=== PATIENT | male | born 1975 | race Caucasian/White ===

== ENCOUNTER 2017-06-08 12:18 | Observation (INO) | payer MEDICAID, SELFPAY ==
[2017-06-08 12:07] VITALS: BP 123/85; PULSE 75; RESP 18; TEMP 37.1; O2SAT 97; BMI 23.6; BMI 23.7
--- NOTE | 2017-06-08 12:27 | PCM.HP.STD ---
Problem List (1) Opiate withdrawal Status: Acute (2) Benzodiazepine withdrawal Status: Acute (3) ETOH abuse Status: Chronic (4) Tobacco dependence due to cigarettes Status: Chronic (5) Polysubstance abuse Status: Chronic History of Present Illness Date of Admission: 06/08/17 Chief Complaint: Presented to the [facility] office requesting inpt admission for controlled withdrawal from opiates and benzodiazepins, Tremors, SOLARES The patient is a 42 year old M with a past medical history of anxiety, polysubstance abuse and tobacco dependence who presented to the [facility] office requesting admission for medical stabilization for opiate and benzodiazepine withdrawal. He has been taking about 10 Percocet a day, 4 mg of Xanax and drinking 4-8 16 oz beers a day. He has been to rehab before for polysubstance abuse. He tells me he takes 10-20 Tylenol a day. He also admits to occasional use of Klonopin, cocaine and on rare occasions Heroin. Denies any hx of HEP C or HIV. Has had convulsions with benzo withdrawal in the past. Recently started on Buspar and Celexa 3 weeks ago by his PCP for anxiety and depression associated with his mothers passing recently. He has been having tremors, SOLARES's and increased anxiety. He last took a benzo 4 days ago.. Has not had any seizures. There is a strong FH of alcoholism and also opiate addiction. He plans on following up with an in-pt program at [place]. He will follow up with a physician and the [facility] to prescribe a Benzodiazepine taper for him. Past Medical History Past Medical History (Chronic Problems): Chronic Problems ETOH abuse (Chronic) Tobacco dependence due to cigarettes (Chronic) Polysubstance abuse (Chronic) Home Medications: Ambulatory Orders Medication Instructions Recorded Citalopram Hydrobromide [Celexa] 20 mg PO DAILY 06/08/17 Gabapentin [Neurontin] 800 mg PO TIDCM 06/08/17 busPIRone [Buspar] 10 mg PO TID 06/08/17 Surgical History: - - surgery on the right hand X 2 for injuries sustained when he punched a wall Psychiatric History: Anxiety Lives: Alone - in an APPT. Until his mother passed recently he was living with her Smoking Status: Current every day smoker Tobacco Use: Cigarettes - 1 PPD Alcohol: Heavy Drugs: Cocaine - occasionally, Heroin - On rare occasions, - - Benzodiazepines Review of Systems Constitutional: Reports: Anorexia Eyes: Denies: Blurred vision HEENT: Reports: Head Aches. Denies: Difficulty Swallowing, Sinus Congestion, Sinus Drainage, Sore Throat Cardiovascular: Reports: Palpitations. Denies: Chest Pain, Edema, Light Headedness Respiratory: Denies: Cough, Shortness of breath at rest, Sputum production Gastrointestinal: Denies: Abdominal Pain, Nausea, Vomiting Genitourinary: Denies: Dysuria Musculoskeletal: Reports: Hand Pain - Right hand....chronic Skin: Denies: Jaundice, Rash, Wounds Neurological: Denies: Focal weakness, Numbness, Tingling, Seizures Psychiatric: Reports: Anxiety. Denies: Homicidal Ideations, Suicidal Ideations Endocrine: Reports: Change in Body Habitus - states he has been losing weight ....not eating much recently since his mother Hematologic/ Lymphatic: Denies: Hx of blood clot VTE Information - Inpt Only VTE Present on Admission: No VTE Mechan Device Prophylaxis: None VTE Pharm Prophylaxis ordered?: No Reason prophylaxis not ordered:: Treatment Not Indicated - he is ambulatory and at low risk for DVT Patient Problems: Active and Suspected Problems Opiate withdrawal (Acute) Benzodiazepine withdrawal (Acute) - Physical Exam General: Alert, Oriented x3, Cooperative, - - having myoclonic jerks and tremors of his hands HEENT: Atraumatic, PERRLA, EOMI, Normocephalic Oral: Dry Mucosa Neck: Supple, No JVD, Negative Carotid Bruits, No Nodes, No Nuchal Rigidity, Trachea Midline Lungs: Clear to auscultation Cardiovascular: Regular rate, Regular Rhythm, Normal S1, Normal S2, No murmurs, No rub noted, No Gallop Abdomen: Bowel Sounds Present, Soft, Non Tender, Non-Distended Extremities: No clubbing, No cyanosis, No edema, Peripheral Pulses Normal Skin: No rashes, No breakdown Neurological: Cranial nerves II-XII grossly intact, Neuro grossly intact, - - myoclonic jerks and tremors of his hands Psych/Mental Status: Appropriate, Anxious Assessment/Plan Active and Suspected Problems Opiate withdrawal (Acute) Benzodiazepine withdrawal (Acute) Impressions 1. Acute benzodiazepine withdrawal with tremors and myoclonic jerking 2. Acute opiate withdrawal 3. EtOH abuse 4. Tobacco dependence with cigarettes 5. Polysubstance abuse 6. Long history of anxiety and benzodiazepine dependence-greater than 10 years 7. Positive family history of alcoholism and narcotic addictions [facility] Protocol for acute opiate withdrawal initiated Start Librium 50 mg Q 6 H Ativan 1 mg IV now and then Q 6 H PRN seizure Insert a HL CBC, CMP, urine drug screen, serum ETOH level, Hepatitis panel and HIV Code Visit Inpatient E&M: 90954 Init Hosp L3
--- NOTE | 2017-06-08 12:39 | HP.PCM_ITS ---
Problem List (1) Opiate withdrawal Status: Acute (2) Benzodiazepine withdrawal Status: Acute (3) ETOH abuse Status: Chronic (4) Tobacco dependence due to cigarettes Status: Chronic (5) Polysubstance abuse Status: Chronic History of Present Illness Date of Admission: 06/08/17 Chief Complaint: Presented to the [facility] office requesting inpt admission for controlled withdrawal from opiates and benzodiazepins, Tremors, SOLARES The patient is a 42 year old M with a past medical history of anxiety, polysubstance abuse and tobacco dependence who presented to the [facility] office requesting admission for medical stabilization for opiate and benzodiazepine withdrawal. He has been taking about 10 Percocet a day, 4 mg of Xanax and drinking 4-8 16 oz beers a day. He has been to rehab before for polysubstance abuse. He tells me he takes 10-20 Tylenol a day. He also admits to occasional use of Klonopin, cocaine and on rare occasions Heroin. Denies any hx of HEP C or HIV. Has had convulsions with benzo withdrawal in the past. Recently started on Buspar and Celexa 3 weeks ago by his PCP for anxiety and depression associated with his mothers passing recently. He has been having tremors, SOLARES's and increased anxiety. He last took a benzo 4 days ago.. Has not had any seizures. There is a strong FH of alcoholism and also opiate addiction. He plans on following up with an in-pt program at [place]. He will follow up with a physician and the [facility] to prescribe a Benzodiazepine taper for him. Past Medical History Past Medical History (Chronic Problems): Chronic Problems ETOH abuse (Chronic) Tobacco dependence due to cigarettes (Chronic) Polysubstance abuse (Chronic) Home Medications: Ambulatory Orders Medication Instructions Recorded Citalopram Hydrobromide [Celexa] 20 mg PO DAILY 06/08/17 Gabapentin [Neurontin] 800 mg PO TIDCM 06/08/17 busPIRone [Buspar] 10 mg PO TID 06/08/17 Surgical History: - - surgery on the right hand X 2 for injuries sustained when he punched a wall Psychiatric History: Anxiety Lives: Alone - in an APPT. Until his mother passed recently he was living with her Smoking Status: Current every day smoker Tobacco Use: Cigarettes - 1 PPD Alcohol: Heavy Drugs: Cocaine - occasionally, Heroin - On rare occasions, - - Benzodiazepines Review of Systems Constitutional: Reports: Anorexia Eyes: Denies: Blurred vision HEENT: Reports: Head Aches. Denies: Difficulty Swallowing, Sinus Congestion, Sinus Drainage, Sore Throat Cardiovascular: Reports: Palpitations. Denies: Chest Pain, Edema, Light Headedness Respiratory: Denies: Cough, Shortness of breath at rest, Sputum production Gastrointestinal: Denies: Abdominal Pain, Nausea, Vomiting Genitourinary: Denies: Dysuria Musculoskeletal: Reports: Hand Pain - Right hand....chronic Skin: Denies: Jaundice, Rash, Wounds Neurological: Denies: Focal weakness, Numbness, Tingling, Seizures Psychiatric: Reports: Anxiety. Denies: Homicidal Ideations, Suicidal Ideations Endocrine: Reports: Change in Body Habitus - states he has been losing weight ....not eating much recently since his mother Hematologic/ Lymphatic: Denies: Hx of blood clot VTE Information - Inpt Only VTE Present on Admission: No VTE Mechan Device Prophylaxis: None VTE Pharm Prophylaxis ordered?: No Reason prophylaxis not ordered:: Treatment Not Indicated - he is ambulatory and at low risk for DVT Patient Problems: Active and Suspected Problems Opiate withdrawal (Acute) Benzodiazepine withdrawal (Acute) - Physical Exam General: Alert, Oriented x3, Cooperative, - - having myoclonic jerks and tremors of his hands HEENT: Atraumatic, PERRLA, EOMI, Normocephalic Oral: Dry Mucosa Neck: Supple, No JVD, Negative Carotid Bruits, No Nodes, No Nuchal Rigidity, Trachea Midline Lungs: Clear to auscultation Cardiovascular: Regular rate, Regular Rhythm, Normal S1, Normal S2, No murmurs, No rub noted, No Gallop Abdomen: Bowel Sounds Present, Soft, Non Tender, Non-Distended Extremities: No clubbing, No cyanosis, No edema, Peripheral Pulses Normal Skin: No rashes, No breakdown Neurological: Cranial nerves II-XII grossly intact, Neuro grossly intact, - - myoclonic jerks and tremors of his hands Psych/Mental Status: Appropriate, Anxious Assessment/Plan Active and Suspected Problems Opiate withdrawal (Acute) Benzodiazepine withdrawal (Acute) Impressions 1. Acute benzodiazepine withdrawal with tremors and myoclonic jerking 2. Acute opiate withdrawal 3. EtOH abuse 4. Tobacco dependence with cigarettes 5. Polysubstance abuse 6. Long history of anxiety and benzodiazepine dependence-greater than 10 years 7. Positive family history of alcoholism and narcotic addictions [facility] Protocol for acute opiate withdrawal initiated Start Librium 50 mg Q 6 H Ativan 1 mg IV now and then Q 6 H PRN seizure Insert a HL CBC, CMP, urine drug screen, serum ETOH level, Hepatitis panel and HIV Code Visit Inpatient E&M: 62651 Init Hosp L3
[2017-06-08 12:53] VITALS: BP 123/85; PULSE 74; RESP 16; TEMP 37.1
[2017-06-08 13:18] LABS: Hemoglobin 15.4 g/dl (13.0-16.5); Mean Corp Hgb Conc 33.5 g/gl (32-36); Mean Corpuscular Hgb 32.1 pg (27.0-32.0); Mean Corpuscular Volume 95.8 fL (80-94); Mean Platelet Vol. 10.3 fl (6.2-12.0); Platelet Count 354 K/mm3 (150-450); RBC Distribution Width CV 13.3 % (11.6-14.6); RBC Distribution Width SD 46.6 fl (35.1-43.9); Scan Indicated on CBC? Y/N NO; White Blood Count 10.3 K/mm3 (4.4-11.0)
[2017-06-08 13:26] LABS: Prothrombin Time (Protime)PT. 13.5 SECONDS (11.7-14.9)
[2017-06-08] MEDS: LORazepam 2 MG/ML Syringe 1 MG IV (13:35)
[2017-06-08] MEDS: chlordiazePOXIDE 25 MG Capsule 50 MG PO ×2 (13:35→17:54)
[2017-06-08] MEDS: Buprenorphine HCl 2 MG TAB.SUBL SL ×2 (13:36→20:29)
[2017-06-08 13:44] VITALS: RESP 16
[2017-06-08 13:47] LABS: ALB/GLOB Ratio 1.2 RATIO (0.9-2.4); AST(SGOT) 12 U/L (15-37); Alanine Aminotransfer ALT/SGPT 16 U/L (16-61); Albumin, Serum 4.5 g/dL (3.2-5.0); Alkaline Phosphatase 88 U/L (45-117); Anion Gap 8 (5-15); BUN 4 mg/dL (7-18); BUN/Creat Ratio 5.2 RATIO (10-20); Calcium,Total 9.1 mg/dL (8.5-10.1); Chloride 100 mmol/L (98-107); Creatinine, Serum 0.77 mg/dL (0.70-1.30); EST Glomerular Filtration Rate 117 mL/min (>60); Est Glom Filt Rate - Afr Amer 142 mL/min (>60); Estimated Creatinine Clearance 115.65 ml/min; Globulin 3.8 g/dL (2.2-4.2); Glucose 88 mg/dL (74-106); Potassium 2.9 mmol/L (3.5-5.1); Protein, Total 8.3 g/dL (6.4-8.2); Sodium Level 139 mmol/L (136-145)
[2017-06-08 13:56] LABS: Acetaminophen (Tylenol) Level < 2.0 ug/mL (10.0-30.0)
--- NOTE | 2017-06-08 14:30 | NURSING ---
This RN now the primary RN for this patient at this time.
[2017-06-08] MEDS: Ibuprofen 600 MG Tablet PO (14:55)
[2017-06-08 15:13] LABS: HIV - WCH Non-Reactive (Nonreactive)
[2017-06-08 17:06] VITALS: BP 128/68; PULSE 106; RESP 16; TEMP 37.3
--- NOTE | 2017-06-08 17:11 | CHAPLAIN ---
Type of Pastoral Visit _x__ Initial Visit ___ Follow-up Visit ___ On-call Visit ___ General Patient Visit ___ Spiritual Assessment ___ Family Conference ___ Bereavement ___ Rapid Response ___ Code Blue ___ Other (describe below) Pastoral Care Referral From _x__ Patient ___ Family ___ Nurse ___ Physician ___ Welfare Eligibility Worker ___ Manager Immunology ___ Other (describe below) Sacrament/Intervention _x__ Active listening ___ Anointing ___ Latter-Day _x__ Bereavement ___ Communion _x__ Sarah exploration ___ _x__ Life review _x__ Prayer ___ Reconciliation ___ Sacrament of Sick _x__ Supportive presence ___ Wedding ___ Other (describe below) Pastoral Comments patient was seeking spiritual care through the front end driver; pt has had previous experience and success with a [facility] based rehab program; pt has relapsed after of his mother in April; pt talked at length about his concerns and sarah; pt accepted some reading material and a Bible
[2017-06-08 17:28] LABS: Amphetamine Urine VISTA NEGATIVE (<1000 ng/mL); Barbiturate Urine VISTA NEGATIVE (< 200 ng/mL); Benzodiazepine Urine VISTA NEGATIVE (< 200 ng/mL); Cocaine Urine VISTA NEGATIVE (< 300 ng/mL); Ecstacy Urine VISTA NEGATIVE (< 500 ng/mL); Methadone Urine VISTA NEGATIVE (< 300 ng/mL); PCP Urine VISTA NEGATIVE (< 25 ng/mL); THC Urine VISTA NEGATIVE (< 50 ng/mL); Vista UDS pH Range 6
--- NOTE | 2017-06-08 19:26 | NURSING ---
Addendum entered by Xiomara Dillard 06/08/17 19:31: Dentures in cup, paste and 4 denture tablets given to patient Original Note: On admission pt states he has upper and lower dentures- however, he forgot and left them in his duffle bag that security has stored downstairs. This RN called Charline with [facility] and states that security will be taking belongings of [facility] pt's and placing them in a locked room. This RN went downstairs and met computer systems security administrator and together retrieved patient's dentures, paste and cleaning tablets- per his request.
[2017-06-08] MEDS: Ondansetron ODT 4 MG Tablet PO (20:28)
[2017-06-08] MEDS: cloNIDine HCl 0.1 MG Tablet PO (20:29)
[2017-06-08] MEDS: Dicyclomine 10 MG Capsule 20 MG PO (20:29)
[2017-06-08 20:42] VITALS: BP 124/83; PULSE 101; RESP 18; TEMP 37
[2017-06-08] MEDS: QUEtiapine 25 MG Tablet PO (21:38)
[2017-06-09] VITALS (8 sets, daily range): BP systolic 88–112; BP diastolic 55–73; PULSE 67–102; RESP 16–18; TEMP 36.6–36.9; O2SAT 95–98
[2017-06-09] MEDS: chlordiazePOXIDE 25 MG Capsule 50 MG PO ×3 (00:32→12:38)
[2017-06-09] MEDS: cloNIDine HCl 0.1 MG Tablet PO ×2 (00:32→05:49)
[2017-06-09] MEDS: Ibuprofen 600 MG Tablet PO ×2 (00:32→09:56)
[2017-06-09 05:08] LABS: HEPATITIS B SURFACE AG Negative (Negative); Hepatitis A AB, Total Negative (Negative); Hepatitis A IgM Antibody Negative (Negative); Hepatitis B Core AB IgM Negative (Negative); Hepatitis B Core Ab Total Negative (Negative); Hepatitis C Ab <0.1 s/co ratio (0.0-0.9)
[2017-06-09] MEDS: Dicyclomine 10 MG Capsule 20 MG PO (05:49)
[2017-06-09] MEDS: Ondansetron ODT 4 MG Tablet PO (05:49)
[2017-06-09] MEDS: Buprenorphine HCl 2 MG TAB.SUBL SL ×2 (05:49→12:38)
[2017-06-09] MEDS: Folic Acid 1 MG Tablet PO (07:46)
[2017-06-09] MEDS: Multivitamins,Ther W-Minerals Tablet 1 TABLET PO (07:46)
[2017-06-09] MEDS: Thiamine Hydrochloride 100 MG Tablet PO (07:46)
[2017-06-09 09:21] LABS: Hep B Surface Antibodies Reactive (.)
[2017-06-09] MEDS: QUEtiapine 25 MG Tablet PO (09:57)
--- NOTE | 2017-06-09 17:37 | NURSING ---
Pt requesting discharge orders due to a family emergency with his father. States he just lost his mother recently and can't afford to not be there for his dad. Dr. Jacobs notified and gave orders to have pt sign AMA form. personal clothing laundry aide Tina updated and had pt sign AMA form. placed on front of chart. IV in Right Hand removed.
== END 2017-06-09 18:15 | disposition left against medical advice (07) ==
PROVIDERS: Admitting Provider Internal Medicine; Visit Provider Internal Medicine
DX: F11.23 Opioid dependence with withdrawal (principal); F13.239 Sedative, hypnotic or anxiolytic dependence with withdrawal, unspecified; F17.210 Nicotine dependence, cigarettes, uncomplicated; Z63.72 Alcoholism and drug addiction in family; F41.9 Anxiety disorder, unspecified; F32.9 Major depressive disorder, single episode, unspecified
CPT/HCPCS: 80053; 80307; 80320; 80329; 85027; 85610; 86703; 86704; 86705; 86706; 86708; 86709; 86803; 87340; 97802; 99218; 99406; A4216; G0378; G0379; G0480

== ENCOUNTER 2023-10-08 15:36 | Inpatient (IN) | payer OTHER, SELFPAY ==
[2023-10-08 15:36] VITALS: BP 127/95; PULSE 106; RESP 16; TEMP 37.1; O2SAT 96; BMI 21.9
--- NOTE | 2023-10-08 16:08 | EDS_ITS ---
HPI History of Present Illness Chief Complaint: ETOH Intox PFSH PFS Home Medications ?Medication ?Instructions ?Recorded ?Last Taken ?Type buspirone 5 mg tablet 10 mg PO TID anxiety 06/08/17 06/08/17 History citalopram 20 mg tablet (Celexa) 20 mg PO DAILY anxiety 06/08/17 06/08/17 History gabapentin 800 mg tablet 800 mg PO TIDCM nerve pain 06/08/17 06/07/17 History buprenorphine 8 mg-naloxone 2 mg 1 tab sublingual BID 10/08/23 Unknown History sublingual tablet omeprazole 40 mg capsule,delayed 40 mg PO DAILY 10/08/23 Unknown History release Allergy/AdvReac Type Severity Reaction Status Date / Time No Known Allergies Allergy Verified 10/08/23 15:37 Social History Smoking Status: Current every day smoker tobacco type: cigarettes EXAM Physical Exam Const Vital Signs: 10/08/23 15:36 10/08/23 17:36 Temperature 98.7 F Temperature Source Oral Pulse Rate 106 H 87 Respiratory Rate 16 16 Blood Pressure 127/95 H 108/64 Blood Pressure Mean 105 78 Pulse Ox 96 94 Oxygen Delivery Method Room Air Room Air MDM [facility] MDM Narrative Medical decision making narrative: HISTORY OF PRESENT ILLNESS: 48-year-old male presents with request for alcohol detox. Notes he drinks proxy 1 bottle of 100 proof vodka every couple of days. States his last drink at 3 PM on 10/08/2023. Denies any physical symptoms. Denies any headache, vomiting, seizure. Denies any abdominal pain. Denies any focal numbness or weakness. Denies any falls or recent trauma. REVIEW OF SYSTEMS: As per HPI PHYSICAL EXAM: Nursing triage notes reviewed, Vital signs reviewed Constitutional: please see mdm HENT: MMM Eyes: Pupils equal round and reactive to light, Extraocular muscles intact Neck: No stridor, no JVD, full neck ROM Lungs: Clear to auscultation, No wheezing or rales. No increased work of breathing, no conversational dyspnea, no accessory muscle use, no nasal flaring. No respiratory distress noted Heart: Regular rate and rhythm, No murmurs, No rubs and No gallops, 2+ distal pulses (radial, femoral, posterior tibial) in all extremities Abdomen: Soft, there is no tenderness, rigidity, rebound or guarding, no obvious peritoneal signs, no palpable pulsatile abdominal masses, no auscultated abdominal bruit : No CVAT Extremities: No edema Neuro: No focal neurological deficits, cranial nerves II through XII intact, 5/5 strength in all extremities. Intact sensation to light touch in all extremities, 2+ reflexes bilateral patella tendons. Normal gait. No ataxia. Skin: No rash or lesions noted MEDICAL DECISION MAKING: Chief Complaint: Alcohol detox External records reviewed: Reviewed prior inpatient detoxification record. Patient underwent inpatient detox in 2018 Factors affecting care: Anxiety, polysubstance abuse, tobacco dependence Social determinants of health: History of alcohol abuse, tobacco dependence History obtained from others: none Consults: Internal medicine MDM Narrative: Patient was initially hemodynamically stable, slightly tachycardic 106 otherwise afebrile and nontoxic-appearing. Exam without abnormality. Give empiric Ativan, phenobarbital. Gave fluids and thiamine for rehydration and nutritional supplementation. ALL IMAGES (IF OBTAINED) HAVE BEEN PERSONALLY REVIEWED AND INTERPRETED BY MYSELF. Alcohol level grossly elevated consistent with patient's history of alcohol abuse CBC with no leukocytosis to suggest systemic inflammation, no anemia or thrombocytopenia BMP without evidence of significant electrolyte abnormalities, no anion gap, no acute kidney injury. Awaiting urine tox screen Discussed the case with Dr. Pal who accepted his case for further alcohol detoxification. Patient was transferred to the floor in stable condition. The patient and/or family, caregivers express understanding. The patient and/or family, caregivers agrees with the plan. Shared decision making: I will have a discussion with the patient and or visitors regarding risk/benefits of further testing or admission. They will be made aware of of the risk/benefits inherent in this decision they will be given the opportunity to voice understanding. Total critical care time today provided was at least 0 minutes. This excludes separately billable procedures. Critical care time (if documented) is secondary to the patient having high probability of clinically significant/life threatening deterioration in the patient's condition which required my urgent intervention. Impression: 1. Alcohol use disorder 2. Encounter for alcohol detoxification admission Dispo: Admit to floor This note was generated with [employer] dictation software. It may contain incorrect words, spelling, and punctuation that were not noted in review of the chart prior to signing. Lab Data Labs: Laboratory Results - last 24 hr 10/08/23 10/08/23 16:00 17:37 WBC 6.0 RBC 4.21 L Hgb 14.6 Hct 42.8 MCV 101.7 H MCH 34.7 H MCHC 34.1 RDW Std Deviation 43.9 RDW Coeff of Karl 11.8 Plt Count 277 MPV 10.3 Immature Gran % (Auto) 0.200 Neut % (Auto) 41.4 L Lymph % (Auto) 46.9 H [place] % (Auto) 10.4 H Eos % (Auto) 0.3 Baso % (Auto) 0.8 Absolute Neuts (auto) 2.5 Absolute Lymphs (auto) 2.80 Nucleated RBC % 0 Sodium 137 Potassium 3.5 Chloride 101 Carbon Dioxide 31.0 Anion Gap 5 BUN 8 Creatinine 0.63 L Estim Creat Clear Calc 127.58 Est GFR (MDRD) Af Amer 173 Est GFR (MDRD) Non-Af 143 BUN/Creatinine Ratio 12.7 Glucose 101 Calcium 9.1 Ur Drug Screen Comment Ethyl Alcohol 292.0 Discharge Plan Dx/Rx/DC Orders Clinical Impression: ETOH abuse Disposition Disposition: [facility] 800 mg PO TIDCM omeprazole 40 mg capsule,delayed release(DR/EC) 40 mg PO DAILY Patient Comments: TAKE 1 CAPSULE BY MOUTH EVERY DAY buprenorphine-naloxone 8-2 mg tablet, sublingual 1 tab SUBLINGUAL BID Patient Comments: PLACE ONE TABLET UNDER TONGUE TWICE A DAY Primary Care Provider: Care Physician,No Primary Referrals: Care Physician,No Primary [Primary Care Provider] - Print Language: Estonian
--- NOTE | 2023-10-08 16:09 | EKG12_ITS ---
Test Reason : Blood Pressure : / mmHG Vent. Rate : 096 BPM Atrial Rate : 096 BPM P-R Int : 178 ms QRS Dur : 082 ms QT Int : 352 ms P-R-T Axes : 065 006 045 degrees QTc Int : 444 ms Normal sinus rhythm Normal Confirmed by José Miguel Gibson ([id number]), makeup editor JUAN SORTO ([id number]) on 10/09/2023 2:11:30 PM Referred By: Confirmed By:José Miguel Gibson
[2023-10-08 16:21] LABS: Absolute Neutrophil Count 2.5 X10^3/uL (2.0-7.7); Basophil# 0.05 X10^3/uL; Basophil% 0.8 % (0-1); Eosinophil# 0.02 X10^3/uL; Eosinophils% 0.3 % (0-5); Hematocrit 42.8 % (40-54); Hemoglobin 14.6 g/dL (13.0-16.5); Lymphocyte % 46.9 % (19-41); Mean Corp Hgb Conc 34.1 g/dL (32-36); Mean Corpuscular Hgb 34.7 pg (27.0-32.0); Mean Corpuscular Volume 101.7 fL (80-94); Mean Platelet Vol. 10.3 fl (6.2-12.0); Monocyte# 0.62 X10^3/uL; Monocyte% 10.4 % (0-10); NRBC Flagged by Analyzer 0 % (0-5); Neutrophil # 2.47 X10^3/uL (2.7-7.7); Neutrophil % 41.4 % (47-70); Platelet Count 277 K/mm3 (150-450); RBC Distribution Width CV 11.8 % (11.6-14.6); RBC Distribution Width SD 43.9 fl (35.1-43.9); Red Blood Count 4.21 M/mm3 (4.6-6.2)
[2023-10-08] MEDS: LORazepam 2 MG/ML Syringe IM (16:27)
[2023-10-08] MEDS: Phenobarbital 32.4 MG Tablet 97.2 MG PO (16:27)
[2023-10-08] MEDS: 0.9% Normal Saline (1000mL) 1,000 ML 999 ML IV (16:28)
[2023-10-08] MEDS: Thiamine Hydrochloride 100 MG in 0.9% Normal Saline (50mL Bag) 50 ML 200 MG IV (16:28)
[2023-10-08 16:36] LABS: Anion Gap 5 (5-15); BUN 8 mg/dL (7-18); BUN/Creat Ratio 12.7 RATIO (10-20); Calcium,Total 9.1 mg/dL (8.5-10.1); Chloride 101 mmol/L (98-107); Creatinine, Serum 0.63 mg/dL (0.70-1.30); EST Glomerular Filtration Rate 143 mL/min (>60); Est Glom Filt Rate - Afr Amer 173 mL/min (>60); Estimated Creatinine Clearance 127.58 ml/min; Glucose 101 mg/dL (74-106); Potassium 3.5 mmol/L (3.5-5.1); Sodium Level 137 mmol/L (136-145)
[2023-10-08 17:36] VITALS: BP 108/64; PULSE 87; RESP 16; O2SAT 94
[2023-10-08 18:05] VITALS: BP 118/73; PULSE 88; RESP 17; TEMP 36.7; O2SAT 98
[2023-10-08 18:27] LABS: Amphetamine Urine VISTA NEGATIVE (<1000 ng/mL); Barbiturate Urine VISTA POSITIVE (< 200 ng/mL); Benzodiazepine Urine VISTA NEGATIVE (< 200 ng/mL); Cocaine Urine VISTA NEGATIVE (< 300 ng/mL); Ecstacy Urine VISTA NEGATIVE (< 500 ng/mL); Methadone Urine VISTA NEGATIVE (< 300 ng/mL); PCP Urine VISTA NEGATIVE (< 25 ng/mL); THC Urine VISTA NEGATIVE (< 50 ng/mL); Vista UDS pH Range 6
--- NOTE | 2023-10-08 18:42 | PCM.HP.STD ---
HPI - General General Date of Admission: 10/08/23 Date of Service: 10/08/23 Chief Complaint: detox from ETOH HPI Narrative TARI KLINE, is a 48 M who presents to the emergency room at [facility] requesting services for alcohol detox. Patient is a chronic pain patient and uses Subutex and Neurontin on a chronic basis, he states sometimes he will drink a liter of vodka in a day but it is not every day that he drinks like that. Patient states his last drink was approximately 3:00 this afternoon. Patient states he had some nervousness when he first got to the ER but he was given Ativan and phenobarbital in the ER and he says he is better at this time. CBC was unremarkable, chemistry profile was unremarkable, blood alcohol level was 292 and talk screen was positive for barbiturates. Patient will be admitted to [facility] Patient will be admitted to [place] [id number], orders were entered using the alcohol detox order set, patient will be seen by addiction administrator social welfare [facility] Home Medications ?Medication ?Instructions ?Recorded ?Last Taken ?Type gabapentin 800 mg tablet 800 mg PO TIDCM nerve pain 06/08/17 10/08/23 History buprenorphine 8 mg-naloxone 2 mg 1 tab sublingual BID 10/08/23 10/07/23 History sublingual tablet omeprazole 40 mg capsule,delayed 40 mg PO DAILY 10/08/23 10/08/23 History release Allergy/AdvReac Type Severity Reaction Status Date / Time No Known Allergies Allergy Verified 10/08/23 15:37 Social History Smoking Status: Current every day smoker tobacco type: cigarettes ROS Constitutional Constitutional: Denies anorexia, change in weight, fever(s), night sweats or weakness Eyes Eyes: Denies blurry vision, change in vision, discharge from eye(s) or eye pain Cardiovascular Cardiovascular: Denies chest pain, claudication, edema or palpitations Respiratory/Chest Respiratory/Chest: Denies cough, hemoptysis, shortness of breath at rest or shortness of breath with exertion Gastrointestinal Gastrointestinal: Denies abdominal pain, constipation, diarrhea, hematemesis, hematochezia, melena, nausea or vomiting Genitourinary Genitourinary: Denies dysuria, hematuria, urinary frequency, urinary hesitancy, urinary incontinence or urinary urgency Musculoskeletal Musculoskeletal: Reports back pain and other Details: Chronic low back pain ; Denies joint pain, joint stiffness, joint swelling, myalgias or neck pain Neurologic Neurologic: Denies abnormal gait, abnormal speech, dizziness, focal weakness, headache(s), loss of vision, numbness, other visual disturbances, paresthesias, syncope or tingling Psychiatric Psychiatric: Denies anxiety, cognitive impairment, depression, irritability, mood swings or suicidal ideation Endocrine Endocrinology: Denies change in body appearance, cold intolerance, excessive sweating, heat intolerance, polydipsia or polyuria Hematologic/Lymphatic Hematologic/Lymphatic: Denies none, anemia, easy bleeding, easy bruising or lymphadenopathy Allergic/Immunologic Allergic/Immunologic: Denies rhinitis, urticaria, eczemia or asthma Vital Signs Vital Signs Vital Signs: 10/08/23 15:36 10/08/23 17:36 10/08/23 18:05 Temperature 98.7 F 98.1 F Temperature Source Oral Pulse Rate 106 H 87 88 Respiratory Rate 16 16 17 Blood Pressure 127/95 H 108/64 118/73 Blood Pressure Mean 105 78 88 Pulse Ox 96 94 98 Oxygen Delivery Method Room Air Room Air Weight Weight: 63.594 kg Body Mass Index (BMI) 21.9 Physical Exam Const alert, oriented x3, no apparent distress and average body habitus General Appearance: cooperative, well kempt and well developed Orientation / Consciousness: awake, oriented to person, oriented to place and oriented to time HEENT normocephalic, head/scalp atraumatic, hearing grossly normal bilaterally and moist oral mucous membranes Eyes PERRL, EOMs intact bilaterally and conjunctivae normal Neck supple, no JVD, thyroid normal and no carotid bruits General: trachea midline Resp normal respiratory effort, no retractions, no use of accessory muscles and clear to auscultation bilaterally Auscultation: Negative for rales, rhonchi or wheezes Cardio regular rate, regular rhythm, S1 normal heart sound, S2 normal heart sound, no murmurs, no rub and no gallops GI normal to inspection, nondistended, normoactive bowel sounds, soft to palpation, non-tender and non-distended Extremity no clubbing, cyanosis or edema Skin no rashes or lesions noted General Skin Exam: no breakdown Neuro oriented x3, CN's II-XII intact bilaterally, moves all extremities, no focal motor deficits and no sensory deficits noted Sensorium / Orientation: awake and alert Speech: speech normal Psych affect normal Results Lab / Micro Data 10/08/23 16:00 10/08/23 16:00 Labs: Laboratory Results - last 24 hr 10/08/23 16:00: WBC 6.0, RBC 4.21 L, Hgb 14.6, Hct 42.8, MCV 101.7 H, MCH 34.7 H, MCHC 34.1, RDW Std Deviation 43.9, RDW Coeff of Karl 11.8, Plt Count 277, MPV 10.3, Immature Gran % (Auto) 0.200, Neut % (Auto) 41.4 L, Lymph % (Auto) 46.9 H, [place] % (Auto) 10.4 H, Eos % (Auto) 0.3, Baso % (Auto) 0.8, Absolute Neuts (auto) 2.5, Absolute Lymphs (auto) 2.80, Nucleated RBC % 0, Sodium 137, Potassium 3.5, Chloride 101, Carbon Dioxide 31.0, Anion Gap 5, BUN 8, Creatinine 0.63 L, Estim Creat Clear Calc 127.58, Est GFR (MDRD) Af Amer 173, Est GFR (MDRD) Non-Af 143, BUN/Creatinine Ratio 12.7, Glucose 101, Calcium 9.1, Ethyl Alcohol 292.0 10/08/23 17:37: Urine Opiates Screen NEGATIVE, Urine Methadone Screen NEGATIVE, Ur Barbiturates Screen POSITIVE H, Ur Phencyclidine Scrn NEGATIVE, Ur Amphetamines Screen NEGATIVE, MDMA (Ecstasy) Screen NEGATIVE, U Benzodiazepines Scrn NEGATIVE, Urine Cocaine Screen NEGATIVE, U Cannabinoids Screen NEGATIVE, Ur Drug Screen Comment Assessment & Plan Assessment/Plan (1) ETOH abuse: PLAN: Plan 1. Acute alcohol withdrawal-patient will be admitted to [facility], he was already given Ativan and phenobarb in the emergency room, CIWA scores will be charted, he will be seen by addiction administrator social welfare, he will continue his home medications and orders were entered using the addiction order set. #2 chronic back pain-patient is on gabapentin and he states that he will be getting some back injections from pain management in [place]. Patient states he takes Subutex for chronic pain. #3 acid reflux-patient is on omeprazole #4 alcohol intoxication #5 chronic alcoholism-complicates care, management, recovery, and prognosis Total clinical time spent by myself addressing the patient's medical issues, reviewing all of his data, and collaborating with patient's care team: 55 minutes Charges/Coding Visit Charges Inpatient E&M: 15661 Init Hosp L2
[2023-10-08 18:58] VITALS: BP 111/79; PULSE 84; RESP 18; O2SAT 93
--- NOTE | 2023-10-08 20:05 | NURSING ---
Pt was very belligerent to staff. Pt requesting only ativan. Did not even want to try the phenobarb. Pt not wanting to answer questions on admission and when he did was condescending to staff.
[2023-10-08 20:35] VITALS: BMI 22.0
[2023-10-08 20:45] VITALS: BP 105/72; PULSE 87; RESP 18; TEMP 36.8; O2SAT 95
--- NOTE | 2023-10-08 21:10 | ED.RN ---
Suicide precaution order placement by mistake per Dr Alvarado. Pt is not under suicide precautions.
[2023-10-08] MEDS: Phenobarbital 32.4 MG Tablet 64.8 MG PO (21:15)
[2023-10-08] MEDS: Acetaminophen 500 MG Tablet PO (21:15)
--- NOTE | 2023-10-08 21:19 | NURSING ---
Talk to ronny in ed. Pt was never in suicide precautions in ed. Will d/c the order. Pt denies ever saying anything about suicide.
[2023-10-09 01:05] VITALS: BP 96/68; PULSE 84; RESP 16; TEMP 36.6; O2SAT 96
[2023-10-09] MEDS: Phenobarbital 32.4 MG Tablet 64.8 MG PO ×6 (01:09→21:13)
[2023-10-09 05:33] VITALS: BP 121/83; PULSE 69; RESP 18; TEMP 36.6; O2SAT 97
[2023-10-09 08:40] VITALS: BP 129/94; PULSE 83; RESP 16; TEMP 36.4; O2SAT 96
[2023-10-09] MEDS: Thiamine Hydrochloride 100 MG Tablet PO (08:44)
[2023-10-09] MEDS: Acetaminophen 500 MG Tablet PO (08:44)
[2023-10-09] MEDS: Folic Acid 1 MG Tablet PO (08:44)
[2023-10-09] MEDS: Gabapentin 800 MG Tablet PO ×3 (08:44→16:27)
[2023-10-09] MEDS: Pantoprazole Sodium 40 MG Tablet PO (08:44)
[2023-10-09 09:28] LABS: Anion Gap 6 (5-15); BUN 7 mg/dL (7-18); BUN/Creat Ratio 13.8 RATIO (10-20); Calcium,Total 8.7 mg/dL (8.5-10.1); Chloride 103 mmol/L (98-107); Creatinine, Serum 0.51 mg/dL (0.70-1.30); EST Glomerular Filtration Rate 185 mL/min (>60); Est Glom Filt Rate - Afr Amer 224 mL/min (>60); Estimated Creatinine Clearance 158.11 ml/min; Glucose 96 mg/dL (74-106); Magnesium 1.9 mg/dL (1.6-2.6); Phosphorus 2.9 mg/dL (2.5-4.9); Sodium Level 140 mmol/L (136-145)
--- NOTE | 2023-10-09 09:53 | PCM.PN.HOSP ---
Reason for Visit Reason for Visit: Diagnoses Alcohol abuse, uncomplicated (10/08/23) Subjective Subjective Saw patient at bedside this morning. Patient was fatigued appearing but otherwise laying fairly comfortably in bed, no acute distress. Patient stated that he felt like crap this morning. Had some nausea and decreased appetite, and generally felt fatigued and had muscle aches.. He denied any tremors or sweating. Denied any other alcohol withdrawal symptoms. No other acute concerns this morning. Objective Data Objective Data Vital Signs: Vital Signs Temp Pulse Resp BP Pulse Ox O2 Del Method 97.5 F L 83 16 129/94 H 96 Room Air 10/09/23 08:40 10/09/23 08:40 10/09/23 08:40 10/09/23 08:40 10/09/23 08:40 10/09/23 08:40 Oxygen Delivery Method Room Air Weight: 63.8 kg Body Mass Index (BMI) 22.0 Intake & Output: Intake and Output for Last 24 Hours 10/07/23 10/08/23 10/09/23 23:59 23:59 23:59 Intake Total 1051 / 1351 300 / 300 Balance 1051 / 1351 300 / 300 Lab / Micro Data 10/08/23 16:00 10/09/23 08:39 Labs: Laboratory Results - last 24 hr 10/08/23 16:00: WBC 6.0, RBC 4.21 L, Hgb 14.6, Hct 42.8, MCV 101.7 H, MCH 34.7 H, MCHC 34.1, RDW Std Deviation 43.9, RDW Coeff of Karl 11.8, Plt Count 277, MPV 10.3, Immature Gran % (Auto) 0.200, Neut % (Auto) 41.4 L, Lymph % (Auto) 46.9 H, [place] % (Auto) 10.4 H, Eos % (Auto) 0.3, Baso % (Auto) 0.8, Absolute Neuts (auto) 2.5, Absolute Lymphs (auto) 2.80, Nucleated RBC % 0, Sodium 137, Potassium 3.5, Chloride 101, Carbon Dioxide 31.0, Anion Gap 5, BUN 8, Creatinine 0.63 L, Estim Creat Clear Calc 127.58, Est GFR (MDRD) Af Amer 173, Est GFR (MDRD) Non-Af 143, BUN/Creatinine Ratio 12.7, Glucose 101, Calcium 9.1, Ethyl Alcohol 292.0 10/08/23 17:37: Urine Opiates Screen NEGATIVE, Urine Methadone Screen NEGATIVE, Ur Barbiturates Screen POSITIVE H, Ur Phencyclidine Scrn NEGATIVE, Ur Amphetamines Screen NEGATIVE, MDMA (Ecstasy) Screen NEGATIVE, U Benzodiazepines Scrn NEGATIVE, Urine Cocaine Screen NEGATIVE, U Cannabinoids Screen NEGATIVE, Ur Drug Screen Comment 10/09/23 08:39: Sodium 140, Potassium 4.0, Chloride 103, Carbon Dioxide 31.0, Anion Gap 6, BUN 7, Creatinine 0.51 L, Estim Creat Clear Calc 158.11, Est GFR (MDRD) Af Amer 224, Est GFR (MDRD) Non-Af 185, BUN/Creatinine Ratio 13.8, Glucose 96, Calcium 8.7, Phosphorus 2.9, Magnesium 1.9 Physical Exam Const alert, oriented x3, no apparent distress and average body habitus Constitutional Narrative: Middle-age male, appears older than stated age, mildly fatigued appearing but otherwise laying comfortably in bed, conversing normally, in no acute distress. General Appearance: cooperative and comfortable HEENT normocephalic, head/scalp atraumatic, hearing grossly normal bilaterally and nasal mucous membranes and turbinates normal Eyes PERRL, EOMs intact bilaterally and conjunctivae normal Neck full ROM Chest inspection of chest normal Resp normal respiratory effort, normal air movement, no use of accessory muscles and clear to auscultation bilaterally Cardio regular rate, regular rhythm, no murmurs and peripheral pulses 2+ throughout GI normal to inspection, nondistended, normoactive bowel sounds, soft to palpation, non-tender and non-distended Back/Spine normal ROM Extremity normal to inspection, full ROM and no pedal edema Skin no rashes or lesions noted Neuro no focal motor deficits and no sensory deficits noted Speech: speech normal Psych mental status grossly normal Assessment & Plan Assessment/Plan (1) ETOH abuse: (2) Tobacco dependence due to cigarettes: PLAN: Plan Patient is a 48-year-old male who presented [facility] ED on 10/08/2023 for alcohol detoxification. 1. Alcohol abuse with desire for detoxification ? Case management and addiction medicine following. Patient reported drinking up to a liter of vodka most days. Alcohol level 292 on admit. Last drink at 3 PM on day of admission. Continue phenobarbital taper with as needed medications per alcohol withdrawal order set. Patient planning to follow-up with AA in outpatient setting on discharge. 2. Chronic back pain ? Follows with pain management in [place]. Apparently receives pain injections there on a fairly regular basis. Continue home Subutex and gabapentin here. 3. GERD ? Stable. Continue home PPI. 4. Tobacco abuse ? Continue nicotine patch started on admission. 5. History of benzodiazepine abuse ? Urine tox screen negative for benzos on admission. DVT prophylaxis: Low risk, ambulate CODE STATUS: Full code, verified Expected disposition: Home, 2 to 3 days Total clinical time spent by myself addressing the patient's medical issues, reviewing all the data, and collaborating with patient's care team: 25 minutes. Charges/Coding Visit Charges Inpatient E&M: 19846 Subs Hosp L1
[2023-10-09] MEDS: BUPRENORPHINE HCL/NALOXONE HCL 1 EACH TAB.SUBL SL ×2 (10:10→21:13)
[2023-10-09 12:40] VITALS: BP 126/87; PULSE 78; RESP 16; TEMP 36.8; O2SAT 98
--- NOTE | 2023-10-09 12:42 | ADDICTION ---
This quality analyst/technical writer met with PT to conduct ASAM, MSE, AUDIT assessments and to plan for d/c. Pt has a hx of benzodiazepine abuse. PT was A+Ox4 and participated actively. All assessments completed. PT plans to f/u with AA for follow-up recovery support. PT did not indicate a need for transportation post d/c from [facility].
[2023-10-09 21:05] VITALS: BP 112/77; PULSE 72; RESP 14; TEMP 36.7; O2SAT 98
[2023-10-10 00:57] VITALS: BP 111/76; PULSE 76; RESP 14; TEMP 36.6; O2SAT 98
[2023-10-10] MEDS: Phenobarbital 32.4 MG Tablet 64.8 MG PO ×4 (00:58→12:29)
[2023-10-10] MEDS: traZODone 100 MG Tablet PO (00:58)
[2023-10-10 05:48] VITALS: BP 96/68; PULSE 61; RESP 16; TEMP 36.6; O2SAT 98
[2023-10-10 08:30] VITALS: BP 123/75; PULSE 66; RESP 16; TEMP 36.7; O2SAT 96
[2023-10-10] MEDS: Folic Acid 1 MG Tablet PO (08:33)
[2023-10-10] MEDS: Thiamine Hydrochloride 100 MG Tablet PO (08:34)
[2023-10-10] MEDS: Pantoprazole Sodium 40 MG Tablet PO (08:34)
[2023-10-10] MEDS: Gabapentin 800 MG Tablet PO ×2 (08:34→12:29)
[2023-10-10] MEDS: BUPRENORPHINE HCL/NALOXONE HCL 1 EACH TAB.SUBL SL (09:41)
[2023-10-10 12:25] VITALS: BP 124/71; PULSE 95; RESP 18; TEMP 36.4; O2SAT 98
--- NOTE | 2023-10-10 12:29 | DS.PCM_ITS ---
Providers Date of Admission: 10/08/23 Primary Care Physician: Aga Primary Care Phys Reason For Visit: ALCOHOL DETOX Diagnosis Discharge Diagnosis (1) ETOH abuse: Status: Chronic Code(s): F10.10 - Alcohol abuse, uncomplicated (2) Tobacco dependence due to cigarettes: Status: Chronic Code(s): F17.210 - Nicotine dependence, cigarettes, uncomplicated Plan Patient is a 48-year-old male who presented [facility] ED on 10/08/2023 for alcohol detoxification. 1. Alcohol abuse with desire for detoxification ? Case management and addiction medicine following. Patient reported drinking up to a liter of vodka most days. Alcohol level 292 on admit. Last drink at 3 PM on day of admission. Continue phenobarbital taper with as needed medications per alcohol withdrawal order set. Patient planning to follow-up with AA in outpatient setting on discharge. 2. Chronic back pain ? Follows with pain management in [place]. Apparently receives pain injections there on a fairly regular basis. Continue home Subutex and gabapentin here. 3. GERD ? Stable. Continue home PPI. 4. Tobacco abuse ? Continue nicotine patch started on admission. 5. History of benzodiazepine abuse ? Urine tox screen negative for benzos on admission. DVT prophylaxis: Low risk, ambulate CODE STATUS: Full code, verified Expected disposition: Home, 2 to 3 days Total clinical time spent by myself addressing the patient's medical issues, reviewing all the data, and collaborating with patient's care team: 25 minutes. Medications at Discharge Home Medications gabapentin 800 mg tablet 800 mg PO TIDCM nerve pain 06/08/17 buprenorphine 8 mg-naloxone 2 mg sublingual tablet 1 tab sublingual BID 10/08/23 omeprazole 40 mg capsule,delayed release 40 mg PO DAILY 10/08/23 Weight / BMI Weight Weight: 63.8 kg Body Mass Index (BMI) 22.0 ABG / Lab / Microbiology Data 10/08/23 16:00 10/09/23 08:39 Meaningful Use Info Ischemic Stroke Statin Dosing Therapy Reference: STATIN DOSE THERAPY REFERENCE: * Patients > 75 years receive moderate or high dose statin therapy. * Patients 75 years or YOUNGER should receive HIGH intensity statin dose unless contraindicated. You will be required to document reason for non-treatment if statin daily dose does not meet guidelines. HIGH DOSE STATIN THERAPY DAILY Atorvastatin > than or = to 40 mg Rosuvastatin > than or = to 20 mg Amlodipine + Atorvastatin > than or = to 2.5/40 mg Ezetimibe + Simvastatin 10/80 mg Simvastatin 80mg Discharge Plan Admission Admit Date/Time: 10/08/23 19:03 Attending Provider: Dustin Castillo Primary Care Provider: Care Physician,No Primary Consulting Providers: Santi Pal Discharge Orders/Prescriptions Prescriptions: No Action gabapentin 800 MG tablet 800 mg PO TIDCM omeprazole 40 mg capsule,delayed release(DR/EC) 40 mg PO DAILY Patient Comments: TAKE 1 CAPSULE BY MOUTH EVERY DAY buprenorphine-naloxone 8-2 mg tablet, sublingual 1 tab SUBLINGUAL BID Patient Comments: PLACE ONE TABLET UNDER TONGUE TWICE A DAY Referrals / Follow Up: Care Physician,No Primary [Primary Care Provider] -
--- NOTE | 2023-10-10 12:29 | PCM.DC ---
Discharge Instructions Diet Discharge Diet: No restrictions Activity Discharge Activity: No Restrictions Follow Up Care Test Results: Test results from this visit will be discussed in further detail at your follow-up appointment, if applicable. Discharge Plan Admission Admit Date/Time: 10/08/23 19:03 Primary Reason for Your Visit: alcohol detox Attending Provider: Dustin Castillo Primary Care Provider: Care Physician,No Primary Consulting Providers: Santi Pal Discharge Orders/Prescriptions Prescriptions: Continued gabapentin 800 MG tablet 800 mg PO TIDCM omeprazole 40 mg capsule,delayed release(DR/EC) 40 mg PO DAILY Patient Comments: TAKE 1 CAPSULE BY MOUTH EVERY DAY buprenorphine-naloxone 8-2 mg tablet, sublingual 1 tab SUBLINGUAL BID Patient Comments: PLACE ONE TABLET UNDER TONGUE TWICE A DAY Referrals / Follow Up: Care Physician,No Primary [Primary Care Provider] - Disposition Disposition (needs filled in before D/C Order can be placed): Home, Self Care
--- NOTE | 2023-10-10 12:29 | PCM.DC.SUM ---
Providers Date of Admission: 10/08/23 Date of Discharge: 10/10/23 Primary Care Physician: No Primary Care Phys Reason For Visit: ALCOHOL DETOX Diagnosis Discharge Diagnosis (1) ETOH abuse: Status: Chronic Code(s): F10.10 - Alcohol abuse, uncomplicated (2) Tobacco dependence due to cigarettes: Status: Chronic Code(s): F17.210 - Nicotine dependence, cigarettes, uncomplicated Medications at Discharge Home Medications gabapentin 800 mg tablet 800 mg PO TIDCM nerve pain 06/08/17 buprenorphine 8 mg-naloxone 2 mg sublingual tablet 1 tab sublingual BID 10/08/23 omeprazole 40 mg capsule,delayed release 40 mg PO DAILY 10/08/23 Hospital Course Operations None Procedures EKG Summary of Care Provided Minutes Spent on Discharge: 25 Hospital Course: Patient is a 48-year-old male who presented [facility] ED on 10/08/2023 for alcohol detoxification. Hospital course as noted below. Patient discharged home in stable condition on 10/09. 1. Alcohol abuse with desire for detoxification ? Case management and addiction medicine followed. Patient reported drinking up to a liter of vodka most days. Alcohol level 292 on admit. Last drink at 3 PM on day of admission. Treated with phenobarbital taper with as needed medications per alcohol withdrawal order set with adequate symptom control. Patient planning to follow-up with AA in outpatient setting on discharge. 2. Chronic back pain ? Follows with pain management in [place]. Apparently receives pain injections there on a fairly regular basis. Continued home Subutex and gabapentin while inpatient. 3. GERD ? Stable. Continue home PPI. 4. Tobacco abuse ? Treated with nicotine patch per patient request while inpatient. Encouraged cessation on discharge. 5. History of benzodiazepine abuse ? Urine tox screen negative for benzos on admission. Total clinical time spent by myself addressing the patient's medical issues, reviewing all the data, and collaborating with patient's care team: 25 minutes. Physical Exam Const alert, oriented x3, no apparent distress and average body habitus Constitutional Narrative: Middle-age male, appears older than stated age, mildly fatigued appearing but otherwise laying comfortably in bed, conversing normally, in no acute distress. General Appearance: cooperative and comfortable HEENT normocephalic, head/scalp atraumatic, hearing grossly normal bilaterally and nasal mucous membranes and turbinates normal Eyes PERRL, EOMs intact bilaterally and conjunctivae normal Neck full ROM Chest inspection of chest normal Resp normal respiratory effort, normal air movement, no use of accessory muscles and clear to auscultation bilaterally Cardio regular rate, regular rhythm, no murmurs and peripheral pulses 2+ throughout GI normal to inspection, nondistended, normoactive bowel sounds, soft to palpation, non-tender and non-distended Back/Spine normal ROM Extremity normal to inspection, full ROM and no pedal edema Skin no rashes or lesions noted Neuro no focal motor deficits and no sensory deficits noted Speech: speech normal Psych mental status grossly normal Weight / BMI Weight Weight: 63.8 kg Body Mass Index (BMI) 22.0 ABG / Lab / Microbiology Data 10/08/23 16:00 10/09/23 08:39 Meaningful Use Info Meaningful Use Meaningful Use Diagnoses (Choose all that apply): None applicable Ischemic Stroke Statin Dosing Therapy Reference: STATIN DOSE THERAPY REFERENCE: * Patients > 75 years receive moderate or high dose statin therapy. * Patients 75 years or YOUNGER should receive HIGH intensity statin dose unless contraindicated. You will be required to document reason for non-treatment if statin daily dose does not meet guidelines. HIGH DOSE STATIN THERAPY DAILY Atorvastatin > than or = to 40 mg Rosuvastatin > than or = to 20 mg Amlodipine + Atorvastatin > than or = to 2.5/40 mg Ezetimibe + Simvastatin 10/80 mg Simvastatin 80mg Discharge Plan Admission Admit Date/Time: 10/08/23 19:03 Primary Reason for Your Visit: alcohol detox Attending Provider: Dustin Castillo Primary Care Provider: Care Physician,No Primary Consulting Providers: Santi Pal Discharge Orders/Prescriptions Prescriptions: Continued gabapentin 800 MG tablet 800 mg PO TIDCM omeprazole 40 mg capsule,delayed release(DR/EC) 40 mg PO DAILY Patient Comments: TAKE 1 CAPSULE BY MOUTH EVERY DAY buprenorphine-naloxone 8-2 mg tablet, sublingual 1 tab SUBLINGUAL BID Patient Comments: PLACE ONE TABLET UNDER TONGUE TWICE A DAY Referrals / Follow Up: Care Physician,No Primary [Primary Care Provider] - Disposition Disposition (needs filled in before D/C Order can be placed): Home, Self Care Charges/Coding Visit Charges Inpatient E&M: 38060 Disch Hosp
== END 2023-10-10 13:30 | disposition home or self-care (01) | DRG 897 ==
LOC: ED 17:58 → MS3 20:14
PROVIDERS: Admitting Provider Internal Medicine; Emergency Provider Emergency Medicine; Visit Provider Hospitalist
DX: F10.139 Alcohol abuse with withdrawal, unspecified (principal); F10.129 Alcohol abuse with intoxication, unspecified; F17.210 Nicotine dependence, cigarettes, uncomplicated; K21.9 Gastro-esophageal reflux disease without esophagitis; M54.9 Dorsalgia, unspecified; G89.29 Other chronic pain; Y90.8 Blood alcohol level of 240 mg/100 ml or more; Z79.899 Other long term (current) drug therapy
CPT/HCPCS: 36415; 80048; 80307; 82077; 83735; 84100; 85025; 93005; 99283; 99406; J7030; A4216; J3490